=== PATIENT | female | born 2000 | race African-American/Black ===

== ENCOUNTER 2025-09-05 20:46 | Emergency (ER) | payer SELFPAY ==
[2025-09-05 20:58] VITALS: BP 133/72
[2025-09-05 21:41] LABS: Hematocrit 38.1 % (37.0-47.0); Hemoglobin 12.0 g/dL (12.0-16.0); Mean Corp Hgb Conc. 31.5 g/dL (33.0-37.0); Mean Corpuscular Volume 81.2 fL (81.0-99.0); Nucleated Red Blood Cells % 0 %; Red Cell Dist. Width 15.3 % (11.5-14.5)
[2025-09-05 21:46] LABS: Platelet Count 253 10^3/uL (130-400)
[2025-09-05 21:58] LABS: HCG, Serum Qualitative Screen Negative
[2025-09-05 22:03] LABS: ALT (SGPT) 26 U/L (0-35); AST (SGOT) 29 U/L (14-36); Albumin 4.3 g/dl (3.5-5.0); Alkaline Phosphatase 72 U/L (38-126); Blood Urea Nitrogen 10 mg/dl (7-17); Calcium 9.6 mg/dl (8.4-10.2); Carbon Dioxide 27 mmol/L (22-30); Chloride 106 mmol/L (98-107); Glucose 91 mg/dl (70-99); Potassium 4.1 mmol/L (3.5-5.1); Sodium 138 mmol/L (135-145); Total Protein 7.5 g/dl (6.3-8.2); eGFR > 60.00
[2025-09-05 22:40] VITALS: BMI 44.9
[2025-09-05 22:42] VITALS: BP 132/73
[2025-09-06 00:50] LABS: Urine Character Clear (Clear)
[2025-09-06 01:03] LABS: Urine Red Blood Cell 0-2 /HPF (0-2); Urine Squamous Cell >30 /LPF (Few)
[2025-09-06 01:04] VITALS: BP 130/79
[2025-09-06] MEDS: FLAGYL 500 MG PO (01:07)
[2025-09-06] MEDS: DIFLUCAN 150 MG PO (01:07)
--- NOTE | 2025-09-06 01:32 | ED.GENMED ---
History of Present Illness
General
Chief Complaint: Vaginal Bleeding
Source: patient
Exam Limitations: none
Time Seen by Provider: 09/05/25 23:36
Nursing documentation reviewed up to this point in time: agreed with
History of Present Illness
History of Present Illness:
The patient is a 25-year-old female who presents with vaginal discomfort and new onset bleeding. The bleeding began today, described as light, and occurred after the application of a boric acid vaginal suppository. The patient reported experiencing
vaginal discomfort for several weeks, with periods of mild itching but no significant discharge or pain. She denies any previous trauma or penetration. The last menstrual period was at the beginning of the month,08/19/25, and the patient reports her
menstrual cycles are generally regular. The patient denies any current use of hormonal control. She reports no fever, systemic symptoms, or significant history of vaginal infections. She has not been sexually active and denies any trauma or
recent infection.
She does note mild dysuria but denies urgency nor frequency nor hematuria. No abdominal pain or back pain or flank pain.
No prior history of STD nor ovarian cyst.
She has been evaluated by russian teacher within the past 2 to 3 years with reported unremarkable Pap smear.
Past History
Past History
ED Past Medical History: None
ED Past Surgical History: None
Social History
Tobacco: Non-smoker
Alcohol: None
Drug: None
Personal: Single
Living: alone
Employment: Employed
Family History
Family History: Other (Noncontributory)
Phy Exam
Physical Exam
Physical Exam:
GENERAL: Alert , in no apparent distress
EYE: anicteric
NECK: Supple, nontender, no meningismus, no significant adenopathy.
ENT: oral mucosa is moist. No rhinorrhea.
CARDIAC: Regular rate and rhythm. no murmur.
LUNGS: Clear breath sounds bilaterally, no acute respiratory distress, no wheezes/rales/rhonchi
ABDOMEN: Rotund, soft, nondistended, without focal tenderness, no r/g, no cvat. normoactive BS.
: Mild vaginal introitus mucosal irritation without ulceration nor laceration. Cervix is nulli-parous without erosion. No vaginal bleeding. There is scant whitish curd-like discharge within the vaginal vault and very minimal vaginal mucosal
irritation posterior aspect but again no ulcerations. No lacerations. No cervical motion tenderness. Uterus is normal size, nontender, no adnexal masses nor tenderness.
NEUROLOGICAL: Alert and oriented x3, no focal neuro deficits. Gait is steady.
SKIN: Warm and dry, normal color, skin intact. No rash.
MUSCULOSKELETAL: No C/C/E. peripheral pulses are full and equal b/l. No palpable tenderness.
PSYCH: Normal and appropriate interaction.
Course
Orders/Labs/Results
Orders:
Orders
09/05/25 21:01
Test Result ONCE
09/05/25 21:04
Pelvis & Transvaginal US [US Pelvis W Transvag Combined] Urgent
Comment: LMP 08/19
Reason For Exam: heavy vaginal bleeding, vaginal pain
09/05/25 21:22
Type+Screen Urgent
Complete Blood Count/With Diff Urgent
Comprehensive Metabolic Panel Urgent
HCG, Serum Qualitative Screen Urgent
09/05/25 23:47
Urinalysis Reflex To Culture Urgent
Date Specimen was Collected: 09/06/25
Time Specimen was Collected: 00:05
09/06/25 00:09
Fluconazole [Diflucan] 150 mg PO NOW STA
MetroNIDAZOLE [Flagyl] 500 mg PO NOW STA
09/06/25 00:14
Urine Microscopic Reflex Cult Urgent
Chlamydia/GC by PCR Urgent
SHARON Source: Endo-Cervical
Specimen Description:
Source:: ENDOCERVICAL
Date Specimen was Collected: 09/06/25
Time Specimen was Collected: 00:10
Genital Culture Urgent
SHARON Source: Cervix
Specimen Description:
Date Specimen was Collected: 09/06/25
Time Specimen was Collected: 00:10
Urine Culture Urgent
SHARON Source: U
Specimen Description:
Date Specimen was Collected: 09/06/25
Time Specimen was Collected: 00:05
Abnormal Lab Results
09/05/25 09/06/25
21:22 00:14
MCH 25.6 L pg
(27.0-31.0)
MCHC 31.5 L g/dL
(33.0-37.0)
RDW 15.3 H %
(11.5-14.5)
Leukocyte Esterase Rfl 1+ A
(Negative)
Urine Bacteria (Reflex) Moderate A
(Negative)
09/05/25 21:22
09/05/25 21:22
Vital Signs
Initial and Last Documented VS:
Initial Vital Signs
Temp Pulse Resp BP Pulse Ox
98.2 F 74 18 133/72 99
09/05/25 20:58 09/05/25 20:58 09/05/25 20:58 09/05/25 20:58 09/05/25 20:58
Last Documented Vital Signs
Temp Pulse Resp BP Pulse Ox
98.2 F 84 17 130/79 97
09/05/25 20:58 09/06/25 01:04 09/06/25 01:04 09/06/25 01:04 09/06/25 01:36
MDM/Problems Addressed
Differential Diagnosis Includes:
The Differential Diagnosis includes, in no particular order and is not limited to:
1. Yeast infection (Candidiasis)
2. Bacterial vaginosis
3. Hormonal imbalance
4. Urinary tract infection
5. Trauma to vaginal mucosa from boric acid suppository
6. Cervical polyps
7. Dysfunctional uterine bleeding
8. Pelvic inflammatory disease
9. Endometrial hyperplasia
10. Foreign body reaction
MDM/Problems Addressed:
Vaginal discomfort and bleeding
Thus far labs are unremarkable. hCG is negative. Normal CBC.
Pelvic ultrasound is unremarkable.
Will check urinalysis to assess for potential UTI.
Vaginal culture obtained as well as endocervical cultures for GC/chlamydia.
Exam most consistent with candidal vulvovaginitis. Must also consider bacterial vaginosis.
Will give a one-time dose of Diflucan 150 mg and initiate a course of Flagyl for potential BV.
Patient denies sexual activity thus STD is unlikely.
Recommend she avoid any further boric acid tablets as these may be adding to her vaginal mucosal irritation.
Ultimately will require follow-up with [facility].
*Radiology
Radiology exam reviewed: radiology read reviewed (Pelvic ultrasound is unremarkable.)
*Pulse Oximetry
SaO2: 97
Oxygen Mode of Delivery: Room air
Patient hypoxic: no
*Critical Care Note
Total Time (30-74mins, 75-104mins- exclusive of procedures): Not Applicable
Update Note
Update Note:
Pelvic ultrasound is unremarkable.
Urinalysis shows moderate bacteria but this is a contaminated specimen with greater than 30 squamous epithelial cells and only 3-5 WBCs, not consistent with UTI.
Genital cultures are pending.
Will treat for what I suspect is candidal vaginitis with a dose of Diflucan now and an additional dose to take in 3 days time if symptoms persist.
She will also be treated with a 7-day course of metronidazole for potential bacterial vaginosis.
Recommend she follow-up with [facility] either her own in [place] or provided with referral information for [facility] on staff here.
Return precautions discussed.
ED Attending Note
-
Portions of this chart may have been created with voice recognition software.� Occasional wrong word or��sound alike� substitutions may have occurred due to the inherent limitations of voice recognition software.
Discharge Plan
Departure
Patient Disposition: Home (Routine Discharge)
Date of Disposition: 09/06/25
Time of Disposition: 01:35
Patient with high blood pressure during this ER visit?: No
Condition: Good
Discharge Problem:
Acute vulvovaginitis
Instructions: Vaginitis in adults
Prescriptions:
New
fluconazole 150 mg tablet
150 mg PO ONCE Qty: 1 0RF
Rx Instructions:
to be taken 09/09/25
metronidazole 500 mg tablet
500 mg PO BID 7 Days Qty: 14 0RF
Referrals:
Lyric Trimble MD [Active, Gynecology] - Call in 1-3 days for appt
UNKNOWN,NO INTERVIEW [Family Provider]
Stand Alone Forms: Return to Work
Interventions
Interventions:
*Risk Screen - Suicide Last Done: 09/05/25 20:58
*General Assessment Last Done: 09/05/25 20:58
*Neglect/Abuse Screening Last Done: 09/05/25 20:58
*ED- Fall Risk Assessment Last Done: 09/05/25 22:41
*ED COVID-19 Vaccine History Last Done: 09/05/25 22:41
*ED Influenza Vaccine History Last Done: 09/05/25 22:41
*Nursing Disposition Last Done: 09/06/25 01:46
ED-Female Genitourinary Assessment Last Done: 09/05/25 22:47
Discharge Date and Time
Discharge Date/Time: 09/06/25 01:47
Print Language: HEBREW
== END 2025-09-06 01:47 | disposition home or self-care (01) ==
LOC: EMR 20:46
PROVIDERS: Student in an Organized Health Care Education/Training Program; EMERGENCY PHYSICIAN Emergency Medicine
DX: N76.0 Acute vaginitis (principal); L29.9 Pruritus, unspecified; N93.9 Abnormal uterine and vaginal bleeding, unspecified; R30.0 Dysuria
CPT/HCPCS: 99284; 76830; 76856; 80053; 81003; 81015; 84703; 85025; 86850; 86900; 86901; 87070; 87086; 87491; 87591